=== PATIENT | female | born 1965 | race Caucasian/White ===

== ENCOUNTER 2017-07-11 10:48 | Outpatient (CLI) ==
--- NOTE | 2017-07-11 11:28 | DI ---
Exam: Two x-rays of the chest. Comparison: 03/23/2016. Reason for exam: Dorsalgia. FINDINGS: No pneumothorax, pleural effusion, or focal consolidation. The cardiac silhouette is not enlarged. The imaged osseous structures appear grossly unremarkable without acute fracture. Impression: No acute cardiopulmonary process.
--- NOTE | 2017-07-11 11:57 | DI ---
Exam: Three x-rays of the right ribs. Comparison: Chest x-ray performed on the same day. Reason for exam: Dorsalgia unspecified. FINDINGS: No pneumothorax, pleural effusion, or focal consolidation. The cardiac silhouette is not enlarged. The imaged osseous structures appear grossly unremarkable without acute fracture. No displaced rib f ractures are seen. There is mild degenerative disease in the thoracolumbar spine with osteophyte for mation. Impression: 1. No acute cardiopulmonary process. 2. No displaced right-sided rib fractures
== END 2017-07-11 10:49 | disposition home or self-care (01) ==
LOC: RAD 10:48
PROVIDERS: ATTEND Nurse Practitioner Family
DX: M54.9 Dorsalgia, unspecified (principal); W19.XXXA Unspecified fall, initial encounter

== ENCOUNTER 2017-08-22 16:09 | Outpatient (CLI) ==
[2017-08-22 16:57] LABS: FLU INTERNAL QC INTERNAL QC VALID; MOLECULAR FLU A POSITIVE BY NAAT (NEGATIVE); MOLECULAR FLU B NEGATIVE BY NAAT (NEGATIVE)
== END 2017-08-22 16:10 | disposition home or self-care (01) ==
LOC: LAB 16:09
PROVIDERS: ATTEND Nurse Practitioner Family
DX: R50.9 Fever, unspecified (principal); Z20.828 Contact with and (suspected) exposure to other viral communicable diseases
CPT/HCPCS: 87502; 87651; 87880

== ENCOUNTER 2018-07-15 15:15 | Outpatient (CLI) | payer OTHER | END 2018-07-15 15:16 | disposition home or self-care (01) | LOC: RHC-LAB 15:15 | PROVIDERS: ATTEND General Practice | DX: R05 Cough (principal); J98.8 Other specified respiratory disorders | CPT/HCPCS: 87502; 87651 ==